=== PATIENT | male | born 1945 | race Caucasian/White ===

== ENCOUNTER 2025-01-07 06:15 | Day surgery (SDC) | payer MEDICARE ==
[~2025-01-07] VITALS: Ht 190.5 cm; Wt 93.9 kg
[2025-01-07] MEDS ORDERED: SODIUM CHLORIDE 0.9% 10 ML SYR ONE (06:29)
[2025-01-07] MEDS ORDERED: JARDIANCE25 MG (06:36)
[2025-01-07] MEDS ORDERED: ASPIRINCHW 81MG PO (06:36)
[2025-01-07] MEDS ORDERED: PROVENTIL0.083 % IN (06:48)
[2025-01-07] MEDS ORDERED: COLACE100 MG PO (06:49)
[2025-01-07] MEDS ORDERED: VITAMIN D-32000 UNI1 PO (06:49)
[2025-01-07] MEDS ORDERED: FUROSEMIDE20 MG PO (06:50)
[2025-01-07] MEDS ORDERED: GABAPENTIN300 M2 PO (06:51)
[2025-01-07] MEDS ORDERED: IPRATROPIU0.5 MG/3 M IN (06:52)
[2025-01-07] MEDS ORDERED: ISOSORBIDE DINI30 MG PO (06:53)
[2025-01-07] MEDS ORDERED: [UNRECOGNIZED DRUG - OTHER] PO (06:54)
[2025-01-07] MEDS ORDERED: CVS MAGNESIUM500 MG PO (06:56)
[2025-01-07] MEDS ORDERED: TOPROL XL25 M1 PO (06:57)
[2025-01-07] MEDS ORDERED: MIDODRINE10 MG PO (06:57)
[2025-01-07] MEDS ORDERED: LACTULOSE PO (06:59)
[2025-01-07] MEDS ORDERED: BUPIVACAINE HCL PF 0.5 % 50 MG/10 ML SDV ONE (07:00)
[2025-01-07] MEDS ORDERED: TRIAMCINOLONE ACETONIDE 40 MG/ML ML ONE (07:00)
[2025-01-07] MEDS ORDERED: LIDOCAINE MPF 1% (10 MG/ML) 5 ML VIAL ONE (07:00)
[2025-01-07] MEDS ORDERED: MECLIZINE 2525 MG PO (07:00)
[2025-01-07] MEDS ORDERED: NITROSTAT0.4 MG SL (07:01)
[2025-01-07] MEDS ORDERED: PROTONIX40 M2 PO (07:02)
[2025-01-07] MEDS ORDERED: KLOR-CON M2020 MEQ PO (07:02)
[2025-01-07] MEDS ORDERED: LIDOCAINE HCL 1% (10MG/ML) 100 MG/10 ML MDV ONE (07:03)
[2025-01-07] MEDS ORDERED: REFRESH OU (07:04)
[2025-01-07] MEDS ORDERED: CRESTOR20 MG PO (07:05)
[2025-01-07] MEDS ORDERED: KENALOG15 GM/TUBE EX (07:07)
[2025-01-07] MEDS ORDERED: DEPO-TESTOS200 MG/M1 IM (07:07)
[2025-01-07] MEDS ORDERED: VITAMIN B-121000 MCG PO (07:08)
[2025-01-07] MEDS ORDERED: TRELEGY ELLIPTA1 AER IN (07:08)
[2025-01-07 08:58] VITALS: BP 113/72
== END 2025-01-07 08:17 | disposition home or self-care (01) ==
LOC: ORM 06:15
PROVIDERS: ATTEND Student in an Organized Health Care Education/Training Program
DX: M54.89 Other dorsalgia (principal); M54.2 Cervicalgia
CPT/HCPCS: J3301